=== PATIENT | female | born 1960 | race Caucasian/White ===

== ENCOUNTER 2016-12-01 15:57 | Inpatient (IN) | payer BC ==
[2016-12-01] MEDS ORDERED: Docusate Sodium 100 MG Cap PO PRN (17:44)
[2016-12-01] MEDS ORDERED: Lactated Ringers 1,000 ML IV SCH (17:45)
[2016-12-01] MEDS ORDERED: Enoxaparin 30 MG/0.3 ML Syringe SUBCUT SCH (18:00)
[2016-12-01] MEDS ORDERED: ALPRAZolam 0.5 MG Tab.DIS (ODT) PO PRN (18:00)
[2016-12-01] MEDS ORDERED: Levofloxacin/Dextrose 5%-Water 500 MG in Premix Bag 1 BAG IV SCH (18:00)
[2016-12-01] MEDS: methylPREDNISolone Sodium Succinate 125 MG/2 ML SDV IVPUSH SCH (18:24)
[2016-12-01] MEDS: Acetaminophen 325 MG Tab PO PRN (18:41)
[2016-12-01] MEDS: Gabapentin 300 MG Cap PO SCH (19:51)
[2016-12-01] MEDS: Codeine/Promethazine 10-6.25 MG/5 ML Syrup 5 ML UD Cup PO PRN (19:52)
[2016-12-01] MEDS: Zolpidem 5 MG Tab PO PRN (23:06)
[2016-12-02] MEDS: Codeine/Promethazine 10-6.25 MG/5 ML Syrup 5 ML UD Cup PO PRN ×5 (01:48→20:01)
[2016-12-02] MEDS: methylPREDNISolone Sodium Succinate 125 MG/2 ML SDV IVPUSH SCH ×2 (06:22→19:48)
[2016-12-02] MEDS: Celecoxib 100 MG Cap PO SCH (07:59)
[2016-12-02] MEDS: Estradiol 1 MG Tab PO SCH (07:59)
[2016-12-02] MEDS: Gabapentin 300 MG Cap PO SCH ×3 (08:00→19:56)
[2016-12-02] MEDS: Acetaminophen 325 MG Tab PO PRN ×2 (09:25→19:56)
[2016-12-02] MEDS: Albuterol 0.083% 2.5 MG/3 ML Neb Soln NEB SCH ×4 (09:30→20:55)
[2016-12-02] MEDS: ADVAIR INH SCH ×2 (10:00→20:55)
--- NOTE | 2016-12-02 14:49 | PN ---
DATE: 12/02/2016 S: Roseline Pavon came in with severe shortness of breath. They had diagnosed [id number] bronchiolitis. She was admitted to the hospital and started on IV steroids, intravenous antibiotics, and inhalers. She responded fairly good. O: NECK: Supple. CHEST: End-expiratory wheezing. CARDIAC: Sounds are good. EXTREMITIES: No edema. ASSESSMENT: [id number] BRONCHIOLITIS. P: Chest x-ray pending. Lab looks good on her. So, we will proceed with the same therapy. JUAN DIEGO/SARAH /[id number]
[2016-12-02] MEDS: Enoxaparin 40 MG/0.4 ML Syringe SUBCUT SCH (19:54)
[2016-12-02] MEDS: Levofloxacin/Dextrose 5%-Water 500 MG in Premix Bag 1 BAG IV SCH (19:55)
[2016-12-02] MEDS: ALPRAZolam 0.25 MG Tab PO PRN (19:57)
[2016-12-02] MEDS: Zolpidem 5 MG Tab PO PRN (21:57)
[2016-12-03] MEDS: Estradiol 1 MG Tab PO SCH (07:37)
[2016-12-03] MEDS: Celecoxib 100 MG Cap PO SCH (07:37)
[2016-12-03] MEDS: Gabapentin 300 MG Cap PO SCH ×3 (07:38→19:54)
[2016-12-03] MEDS: methylPREDNISolone Sodium Succinate 125 MG/2 ML SDV IVPUSH SCH ×2 (07:39→19:54)
[2016-12-03] MEDS: ALPRAZolam 0.25 MG Tab PO PRN ×2 (07:50→20:06)
[2016-12-03] MEDS: ADVAIR INH SCH ×2 (09:11→21:48)
[2016-12-03] MEDS: Albuterol 0.083% 2.5 MG/3 ML Neb Soln NEB SCH ×3 (09:12→21:48)
--- NOTE | 2016-12-03 10:57 | PN ---
DATE: 12/03/2016 S: Stefani Pavon is in with a [id number]-[id number] bronchiolitis, says she is still coughing hard today. O: NECK: Supple. CHEST: Expiratory wheezing. CARDIAC: Sounds are good. No edema. LABORATORY DATA: Chest x-ray yesterday looked normal. Reviewed lab looks normal. ASSESSMENT: METHICILLIN-RESISTANT STAPHYLOCOCCUS AUREUS BRONCHIOLITIS, PROBABLY AN ASTHMATIC COMPONENT. P: Continue present therapy. JUAN DIEGO/SARAH /[id number]
[2016-12-03] MEDS: Codeine/Promethazine 10-6.25 MG/5 ML Syrup 5 ML UD Cup PO PRN ×2 (11:58→19:53)
[2016-12-03] MEDS: Acetaminophen 325 MG Tab PO PRN ×2 (11:58→20:05)
[2016-12-03] MEDS: Enoxaparin 40 MG/0.4 ML Syringe SUBCUT SCH (19:53)
[2016-12-03] MEDS: Levofloxacin/Dextrose 5%-Water 500 MG in Premix Bag 1 BAG IV SCH (19:53)
[2016-12-03] MEDS: Zolpidem 5 MG Tab PO PRN (20:06)
[2016-12-04] MEDS: Codeine/Promethazine 10-6.25 MG/5 ML Syrup 5 ML UD Cup PO PRN ×3 (05:05→21:43)
[2016-12-04] MEDS: methylPREDNISolone Sodium Succinate 125 MG/2 ML SDV IVPUSH SCH ×2 (08:03→20:36)
[2016-12-04] MEDS: ADVAIR INH SCH ×2 (08:05→20:43)
[2016-12-04] MEDS: Celecoxib 100 MG Cap PO SCH (08:05)
[2016-12-04] MEDS: Gabapentin 300 MG Cap PO SCH ×3 (08:05→20:43)
[2016-12-04] MEDS: Estradiol 1 MG Tab PO SCH (08:05)
[2016-12-04] MEDS: Albuterol 0.083% 2.5 MG/3 ML Neb Soln NEB SCH ×3 (08:11→20:43)
[2016-12-04] MEDS: Acetaminophen/HYDROcodone 325-5 MG Tab PO PRN ×2 (17:34→23:00)
[2016-12-04] MEDS: Levofloxacin/Dextrose 5%-Water 500 MG in Premix Bag 1 BAG IV SCH (20:42)
[2016-12-04] MEDS: Enoxaparin 40 MG/0.4 ML Syringe SUBCUT SCH (20:42)
[2016-12-04] MEDS: Zolpidem 5 MG Tab PO PRN (21:41)
[2016-12-04] MEDS: ALPRAZolam 0.25 MG Tab PO PRN (21:42)
--- NOTE | 2016-12-04 22:59 | PCM.PN ---
- General Info Date of Service: 12/04/16 Admission Dx/Problem (Free Text): Patient was admitted to acute care on December 01 with a diagnosis of bronchiolitis. She continues to receive Levaquin and Solu-Medrol IV daily and 3 times a day breathing treatments. Patient is complaining of anterior rib pain due to coughing. She has been walking the hallways once daily usually in the evenings, without difficulty. Requests a pain pill for her rib pain. nursing staff report that patient does not wish to be woken up at night to have her vitals checked Functional Status: Reports: tolerating diet, ambulating - Review of Systems General: Reports: No Symptoms HEENT: Reports: no symptoms Pulmonary: Reports: cough Cardiovascular: Reports: No Symptoms Gastrointestinal: Reports: No symptoms Genitourinary: Reports: no symptoms Musculoskeletal: Reports: no symptoms Neurological: Reports: No Symptoms - Patient Data Vitals - most recent: Last Vital Signs Temp 97.6 F 12/04/16 20:00 Pulse 89 12/04/16 20:00 Resp 20 12/04/16 20:00 BP 145/94 H 12/04/16 20:00 Pulse Ox 92 L 12/04/16 20:00 Weight - most recent: 237 lb Joss Results last 24 hrs: Microbiology 12/01/16 18:03 Aerobic Blood Culture - Preliminary Blood - Venous NO GROWTH AFTER 3 DAYS Anaerobic Blood Culture - Preliminary NO GROWTH AFTER 3 DAYS 12/01/16 18:03 Aerobic Blood Culture - Preliminary Blood - Venous - Lab Draw NO GROWTH AFTER 3 DAYS Anaerobic Blood Culture - Preliminary NO GROWTH AFTER 3 DAYS Med Orders - Current: Current Medications Acetaminophen (Tylenol) 650 mg PO Q4H PRN PRN Reason: Pain (Mild 1-3)/fever Last Admin: 12/03/16 20:05 Dose: 650 mg Hydrocodone Bitart/Acetaminophen ([place] 325-5 Mg) 1 tab PO Q6H PRN PRN Reason: Pain Last Admin: 12/04/16 17:34 Dose: 1 tab Albuterol (Proventil Neb Soln) 2.5 mg NEB TIDRT [facility] Last Admin: 12/04/16 20:43 Dose: 2.5 mg Alprazolam (Xanax) 0.5 mg PO QID PRN PRN Reason: ANXIETY Last Admin: 12/04/16 21:42 Dose: 0.5 mg Celecoxib (Celebrex) 200 mg PO DAILY [facility] Last Admin: 12/04/16 08:05 Dose: 200 mg Docusate Sodium (Colace) 100 mg PO BID PRN PRN Reason: Constipation Enoxaparin Sodium (Lovenox) 40 mg SUBCUT Q24H [facility] Last Admin: 12/04/16 20:42 Dose: 40 mg Estradiol (Estradiol) 1 mg PO DAILY [facility] Last Admin: 12/04/16 08:05 Dose: 1 mg Gabapentin (Neurontin) 300 mg PO TID [facility] Last Admin: 12/04/16 20:43 Dose: 300 mg Levofloxacin/Dextrose 500 mg/ (Premix) 100 mls @ 100 mls/hr IV Q24H [facility] Last Admin: 12/04/16 20:42 Dose: 100 mls/hr Methylprednisolone Sodium Succinate (Solu-Medrol) 62.5 mg IVPUSH Q12H [facility] Last Admin: 12/04/16 20:36 Dose: 62.5 mg Ptom-Advair 250/50 0 each INH BIDRT [facility] Last Admin: 12/04/16 20:43 Dose: 1 each Promethazine HCl/Codeine (Phenergan With Codeine) 0 ml PO Q4H PRN PRN Reason: Cough Last Admin: 12/04/16 21:43 Dose: 10 ml Zolpidem Tartrate (Ambien) 10 mg PO BEDTIME PRN PRN Reason: Sleep Last Admin: 12/04/16 21:41 Dose: 10 mg Discontinued Medications Albuterol (Proventil Neb Soln) 2.5 mg NEB QIDRT [facility] Last Admin: 12/03/16 09:12 Dose: 2.5 mg Alprazolam (Alprazolam Odt) 0.5 mg PO QID PRN PRN Reason: ANXIETY Enoxaparin Sodium (Lovenox) 30 mg SUBCUT Q24H [facility] Last Admin: 12/01/16 18:21 Dose: 30 mg Lactated Ringer's (Ringers, Lactated) 1,000 mls @ 50 mls/hr IV ASDIRECTED [facility] Last Admin: 12/01/16 18:20 Dose: 50 mls/hr Levofloxacin/Dextrose 500 mg/ (Premix) 100 mls @ 100 mls/hr IV Q24H [facility] Last Admin: 12/01/16 18:27 Dose: 100 mls/hr Methylprednisolone Sodium Succinate (Solu-Medrol) 62.5 mg IVPUSH Q12H [facility] Last Admin: 12/02/16 06:22 Dose: 62.5 mg Promethazine HCl/Codeine (Phenergan With Codeine) 5 ml PO Q6H PRN PRN Reason: Cough Last Admin: 12/02/16 07:59 Dose: 5 ml - Exam General: alert, oriented Neck: supple Lungs: Clear to auscultation, Normal respiratory effort, Other (Cough is barky and deep. Pt walks the halls at a brisk pace without coughing or difficulty. ) Cardiovascular: Regular Rate, Regular Rhythm Abdomen: soft, no tenderness Neurological: no new focal deficit Psy/Mental Status: alert, normal affect - Problem List Review Problem List Initiated/Reviewed/Updated: Yes - My Orders Last 24 Hours: My Active Orders 12/04/16 15:54 Vital Signs [RC] 0800,199912/04/16 16:15 Acetaminophen/HYDROcodone [[place] 325-5 MG] 1 tab PO Q6H PRN - Assessment Assessment:: bronchiolitis - Plan Plan:: Decrease vitals to routine. will add hydrocodone prn rib pain. All questions are answered and concerns are addressed. Anticipate discharge tomorrow.
[2016-12-05] MEDS: Celecoxib 100 MG Cap PO SCH (07:45)
[2016-12-05] MEDS: Gabapentin 300 MG Cap PO SCH ×3 (07:45→20:27)
[2016-12-05] MEDS: Estradiol 1 MG Tab PO SCH (07:45)
[2016-12-05] MEDS: methylPREDNISolone Sodium Succinate 125 MG/2 ML SDV IVPUSH SCH ×2 (07:45→20:29)
[2016-12-05] MEDS: Acetaminophen/HYDROcodone 325-5 MG Tab PO PRN ×3 (07:46→20:27)
[2016-12-05] MEDS: Codeine/Promethazine 10-6.25 MG/5 ML Syrup 5 ML UD Cup PO PRN ×3 (07:47→20:29)
[2016-12-05] MEDS: ADVAIR INH SCH ×2 (09:32→20:41)
[2016-12-05] MEDS: Albuterol 0.083% 2.5 MG/3 ML Neb Soln NEB SCH ×3 (09:32→20:26)
--- NOTE | 2016-12-05 15:57 | PCM.PN ---
- General Info Date of Service: 12/05/16 Admission Dx/Problem (Free Text): Admitted 12/01/16 for bronchiolitis. Getting IV Levaquin, Solu-Medrol. Rib pain has improved with hydrocodone. Is able to cough deeper and better with less pain. Brought up a small amount of white sputum today which was sent for culture. Feels that sputum is becoming looser and easier to expectorate. She is concerned that increased sputum production may make it more difficult to breathe. Would like to stay inpatient one more night for continued monitoring. She is walking the hallways several times per day without difficulty and SOA. Nursing staff have no new concerns for patient. Functional Status: Reports: ambulating - Review of Systems General: Reports: No Symptoms HEENT: Reports: no symptoms Pulmonary: Reports: cough, sputum. Denies: shortness of breath Cardiovascular: Denies: Chest Pain Gastrointestinal: Reports: No symptoms Neurological: Reports: No Symptoms Psychiatric: Reports: no symptoms - Patient Data Vitals - most recent: Last Vital Signs Temp 97.3 F 12/05/16 08:00 Pulse 82 12/05/16 08:00 Resp 20 12/05/16 08:00 BP 131/85 12/05/16 08:00 Pulse Ox 94 L 12/05/16 08:00 Weight - most recent: 237 lb Joss Results last 24 hrs: Microbiology 12/05/16 12:20 Gram Stain - Final Sputum - Expectorated 12/01/16 18:03 Aerobic Blood Culture - Preliminary Blood - Venous NO GROWTH AFTER 3 DAYS Anaerobic Blood Culture - Preliminary NO GROWTH AFTER 3 DAYS 12/01/16 18:03 Aerobic Blood Culture - Preliminary Blood - Venous - Lab Draw NO GROWTH AFTER 3 DAYS Anaerobic Blood Culture - Preliminary NO GROWTH AFTER 3 DAYS Med Orders - Current: Current Medications Acetaminophen (Tylenol) 650 mg PO Q4H PRN PRN Reason: Pain (Mild 1-3)/fever Last Admin: 12/03/16 20:05 Dose: 650 mg Hydrocodone Bitart/Acetaminophen ([place] 325-5 Mg) 1 tab PO Q6H PRN PRN Reason: Pain Last Admin: 12/05/16 13:35 Dose: 1 tab Albuterol (Proventil Neb Soln) 2.5 mg NEB TIDRT [facility] Last Admin: 12/05/16 13:29 Dose: 2.5 mg Alprazolam (Xanax) 0.5 mg PO QID PRN PRN Reason: ANXIETY Last Admin: 12/04/16 21:42 Dose: 0.5 mg Celecoxib (Celebrex) 200 mg PO DAILY [facility] Last Admin: 12/05/16 07:45 Dose: 200 mg Docusate Sodium (Colace) 100 mg PO BID PRN PRN Reason: Constipation Enoxaparin Sodium (Lovenox) 40 mg SUBCUT Q24H [facility] Last Admin: 12/04/16 20:42 Dose: 40 mg Estradiol (Estradiol) 1 mg PO DAILY [facility] Last Admin: 12/05/16 07:45 Dose: 1 mg Gabapentin (Neurontin) 300 mg PO TID [facility] Last Admin: 12/05/16 13:29 Dose: 300 mg Guaifenesin (Organ-I Nr) 200 mg PO TID [facility] Levofloxacin/Dextrose 500 mg/ (Premix) 100 mls @ 100 mls/hr IV Q24H [facility] Last Admin: 12/04/16 20:42 Dose: 100 mls/hr Methylprednisolone Sodium Succinate (Solu-Medrol) 62.5 mg IVPUSH Q12H [facility] Last Admin: 12/05/16 07:45 Dose: 62.5 mg Ptom-Advair 250/50 0 each INH BIDRT [facility] Last Admin: 12/05/16 09:32 Dose: 1 each Promethazine HCl/Codeine (Phenergan With Codeine) 0 ml PO Q4H PRN PRN Reason: Cough Last Admin: 12/05/16 13:32 Dose: 10 ml Zolpidem Tartrate (Ambien) 10 mg PO BEDTIME PRN PRN Reason: Sleep Last Admin: 12/04/16 21:41 Dose: 10 mg Discontinued Medications Albuterol (Proventil Neb Soln) 2.5 mg NEB QIDRT [facility] Last Admin: 12/03/16 09:12 Dose: 2.5 mg Alprazolam (Alprazolam Odt) 0.5 mg PO QID PRN PRN Reason: ANXIETY Enoxaparin Sodium (Lovenox) 30 mg SUBCUT Q24H [facility] Last Admin: 12/01/16 18:21 Dose: 30 mg Lactated Ringer's (Ringers, Lactated) 1,000 mls @ 50 mls/hr IV ASDIRECTED [facility] Last Admin: 12/01/16 18:20 Dose: 50 mls/hr Levofloxacin/Dextrose 500 mg/ (Premix) 100 mls @ 100 mls/hr IV Q24H [facility] Last Admin: 12/01/16 18:27 Dose: 100 mls/hr Methylprednisolone Sodium Succinate (Solu-Medrol) 62.5 mg IVPUSH Q12H [facility] Last Admin: 12/02/16 06:22 Dose: 62.5 mg Promethazine HCl/Codeine (Phenergan With Codeine) 5 ml PO Q6H PRN PRN Reason: Cough Last Admin: 12/02/16 07:59 Dose: 5 ml - Exam General: alert, oriented Neck: supple Lungs: Wheezing (appreciated throughout lung morales. Improves with coughing. ) Cardiovascular: Regular Rate, Regular Rhythm Abdomen: soft, no tenderness Neurological: no new focal deficit Psy/Mental Status: alert, normal affect - Problem List Review Problem List Initiated/Reviewed/Updated: Yes - My Orders Last 24 Hours: My Active Orders 12/04/16 15:54 Vital Signs [RC] 0800,199912/04/16 16:15 Acetaminophen/HYDROcodone [[place] 325-5 MG] 1 tab PO Q6H PRN 12/05/16 15:45 guaiFENesin [Organ-I NR] 200 mg PO TID - Assessment Assessment:: bronchiolitis - Plan Plan:: Continue current therapies/treatments. Will add mucinex TID to thin secretions. All questions are answered and concerns are addressed. Plan for discharge tomorrow following reevaluation by Dr. Cohen.
[2016-12-05] MEDS: guaiFENesin 200 MG Tab PO SCH ×2 (16:00→20:40)
[2016-12-05] MEDS: Enoxaparin 40 MG/0.4 ML Syringe SUBCUT SCH (20:26)
[2016-12-05] MEDS: ALPRAZolam 0.25 MG Tab PO PRN (20:27)
[2016-12-05] MEDS: Zolpidem 5 MG Tab PO PRN (20:27)
[2016-12-05] MEDS: Levofloxacin/Dextrose 5%-Water 500 MG in Premix Bag 1 BAG IV SCH (20:27)
[2016-12-06] MEDS: Acetaminophen 325 MG Tab PO PRN (06:20)
[2016-12-06] MEDS: methylPREDNISolone Sodium Succinate 125 MG/2 ML SDV IVPUSH SCH ×2 (08:14→20:07)
[2016-12-06] MEDS: guaiFENesin 200 MG Tab PO SCH ×3 (08:16→20:04)
[2016-12-06] MEDS: Estradiol 1 MG Tab PO SCH (08:16)
[2016-12-06] MEDS: Gabapentin 300 MG Cap PO SCH ×3 (08:16→20:04)
[2016-12-06] MEDS: Celecoxib 100 MG Cap PO SCH (08:16)
[2016-12-06] MEDS: Albuterol 0.083% 2.5 MG/3 ML Neb Soln NEB SCH ×3 (08:39→21:22)
[2016-12-06] MEDS: ADVAIR INH SCH ×2 (08:42→21:24)
--- NOTE | 2016-12-06 10:01 | PN ---
DATE: 12/06/2016 S: Roseline Pavon is in with [id number] bronchiolitis. O: NECK: Supple. CHEST: Expiratory wheezing. CARDIAC: Sounds are good. ASSESSMENT: BRONCHIOLITIS. P: I am going to go ahead and get some gram-positive cocci and we will get a D- dimer, C-reactive protein this morning. May have to look at the MRSA or something and swinging her in a day. JUAN DIEGO/SARAH /[id number]
[2016-12-06] MEDS: Codeine/Promethazine 10-6.25 MG/5 ML Syrup 5 ML UD Cup PO PRN ×2 (11:42→21:28)
[2016-12-06] MEDS: Acetaminophen/HYDROcodone 325-5 MG Tab PO PRN ×2 (13:15→21:26)
[2016-12-06] MEDS: ALPRAZolam 0.25 MG Tab PO PRN (13:24)
[2016-12-06] MEDS: Enoxaparin 40 MG/0.4 ML Syringe SUBCUT SCH (20:11)
[2016-12-06] MEDS: Zolpidem 5 MG Tab PO PRN (21:28)
[2016-12-07] MEDS: Celecoxib 100 MG Cap PO SCH (07:53)
[2016-12-07] MEDS: Gabapentin 300 MG Cap PO SCH (07:53)
[2016-12-07] MEDS: guaiFENesin 200 MG Tab PO SCH (07:53)
[2016-12-07] MEDS: Estradiol 1 MG Tab PO SCH (07:53)
[2016-12-07] MEDS: methylPREDNISolone Sodium Succinate 125 MG/2 ML SDV IVPUSH SCH (07:54)
[2016-12-07 08:36] VITALS: BP 137/76
[2016-12-07] MEDS: Albuterol 0.083% 2.5 MG/3 ML Neb Soln NEB SCH (09:15)
[2016-12-07] MEDS: ADVAIR INH SCH (09:30)
--- NOTE | 2016-12-23 08:46 | DISCH ---
HOSPITAL COURSE: This is a young white female who was admitted on 12/01/2016 with severe dyspnea, moderate to severe bronchospasm, probably secondary to bronchiolitis and asthma. She was admitted to the hospital and started on IV steroids and intravenous antibiotics. I did do CTA of her chest, looked good. C-reactive protein and D-dimer was okay. She went on to recover and at the time of discharge she just had occasional wheeze and felt well enough to go home. Lab and x-ray done here in the hospital. DISPOSITION: The patient discharged home and she will be seeing her polysomnograph tech within the next week. DISCHARGE MEDICATIONS: Per chart. DISCHARGE DIAGNOSIS: 1. [id number] BRONCHIOLITIS. 2. INSOMNIA. 3. ANXIETY AND DEPRESSIVE DISORDER. NYDIA /[id number]
== END 2016-12-07 12:45 | disposition home or self-care (01) | DRG 138 ==
LOC: UNDOADMIN 15:57 → CC.MS 15:57
PROVIDERS: ADMIT General Practice; ATTEND General Practice
DX: J21.9 Acute bronchiolitis, unspecified (principal); A49.02 Methicillin resistant Staphylococcus aureus infection, unspecified site; I10 Essential (primary) hypertension; E03.9 Hypothyroidism, unspecified; E78.5 Hyperlipidemia, unspecified; Z88.2 Allergy status to sulfonamides; Z88.6 Allergy status to analgesic agent; Z88.8 Allergy status to other drugs, medicaments and biological substances; Z79.899 Other long term (current) drug therapy
CPT/HCPCS: 36415; 71020; 80053; 81001; 83735; 84443; 85025; 85379; 86140; 87040; 87070; 87205; 87804; 94060; 94640; 94640-76; 94667; 94760; A9270-GY; J1650; J1956; J2930; J3370; J7050; J7120; J7620-GY

== ENCOUNTER → 2020-01-11 | Day surgery (SDC) | payer BC ==
[~2020-01-11] MED LIST: Midazolam 1 MG/ML 2 ML SDV IV ONE; Propofol 200 MG/20 ML SDV IV ONE; fentaNYL 100 MCG/2 ML SDV IV ONE
[2020-01-11] MEDS: Lactated Ringers 1,000 ML IV SCH (12:04)
[2020-01-11 13:43] VITALS: BP 113/69; PULSE 80
--- NOTE | 2020-01-11 16:59 | OR ---
DATE OF OPERATION: 01/11/2020 PREOPERATIVE DIAGNOSIS: GASTROESOPHAGEAL REFLUX DISEASE WITH EPIGASTRIC PAIN. POSTOPERATIVE DIAGNOSIS: GASTROESOPHAGEAL REFLUX DISEASE WITH EPIGASTRIC PAIN. SURGEON: Steve Ward MD PROCEDURE: EGD WITH BIOPSIES X4, TOBY. ANESTHESIA: MAC. COMPLICATIONS: None. SPECIMEN: 1. Duodenal bulb biopsy x2. 2. Antral biopsy x2. 3. Antral TOBY. FINDINGS: 1. Full-length EGD. 2. Duodenitis with healing ulcer. 3. Stqj-hv-[id number] chronic-appearing antral gastritis without ulceration or erosion. 4. Spontaneous GERD without hernia. No signs of distal esophagitis, stricturing, or Daniel's changes. RECOMMENDATIONS: The patient will be placed on proton pump therapy. Information on reflux given and she should have close followup for pathology and TOBY reports. INDICATIONS: The patient has been having some ongoing issues with dyspepsia, belching, and heartburn. Dr. Cohen recommended diagnostic scope. DESCRIPTION OF PROCEDURE: The patient was prepped and draped, placed in the left lateral decubitus position. A lubricated Olympus gastroscope was inserted over a bit, advanced to cricopharyngeus area, and easily intubated into the esophagus. The esophageal lining was benign in its entire course. The Z-line was crisp and sharp at 40 cm. There was no hernia present. No distal esophagitis, stricturing, ulceration, or Daniel's changes. Some spontaneous reflux was seen, but minimal. The scope was advanced into the stomach, through the pylorus, and into the second portion of the duodenum. The second portion of the duodenum was benign. The duodenal bulb had evidence of diffuse duodenitis and 1 area looked like a healing ulceration. Two biopsies of that region were taken. The scope was brought back into the stomach and retroflexed. The upper fundus and cardia were completely benign. Upon straightening, the rest of the fundus appeared unremarkable. The antrum had diffuse chronic-appearing gastritis changes. No ulcerations or erosions. Two biopsies and a TOBY were taken. Air was then suctioned from the stomach and the scope removed without complication. KAMRON/SARAH /[id number]
== END ==
LOC: CC.SDS 11:06
PROVIDERS: ATTEND Family Medicine
DX: K29.50 Unspecified chronic gastritis without bleeding (principal); K29.80 Duodenitis without bleeding; K26.9 Duodenal ulcer, unspecified as acute or chronic, without hemorrhage or perforation; K21.9 Gastro-esophageal reflux disease without esophagitis; K52.9 Noninfective gastroenteritis and colitis, unspecified; E03.9 Hypothyroidism, unspecified; E78.5 Hyperlipidemia, unspecified; F41.8 Other specified anxiety disorders; I10 Essential (primary) hypertension; E66.9 Obesity, unspecified; Z68.31 Body mass index [BMI] 31.0-31.9, adult; Z88.1 Allergy status to other antibiotic agents; Z79.899 Other long term (current) drug therapy
CPT/HCPCS: 43239; 87081; J2250; J2704; J3010; J7120